=== PATIENT | male | born 1930 | race Caucasian/White ===

== ENCOUNTER 2017-02-08 18:43 | Emergency (ER) | payer MEDICARE, OTHER ==
[2017-02-08 19:44] LABS: BASOPHIL 0.2 % (0-2); EOSINOPHIL 0.2 % (0-7); HGB 13.9 g/dl (13.2-18.0); LYMPHOCYTE 14.6 % (15-48); MCH 29.6 pg (25.0-31.0); MCHC 34.8 g/dL (32.0-36.0); MCV 85.1 fL (78.0-100.0); MPV 10.3 fL (6.0-9.5); PLT 238 K/uL (150-400); RDW 13.5 % (11.5-14.0); WBC 10.4 K/uL (4.0-10.5)
[2017-02-08 19:55] LABS: INR 1.54 (0.9-1.2); PTT 27.9 SECONDS (23.2-31.4)
[2017-02-08 20:11] LABS: ALBUMIN 3.8 g/dL (3.4-4.8); BILIRUBIN - TOTAL 0.7 mg/dL (0.1-1.0); CREATININE 1.2 mg/dL (0.7-1.2); GLOBULIN (CALCULATION) 2.7 g/dL (2.2-4.2); POTASSIUM 4.2 mmol/L (3.5-5.1); TOTAL PROTEIN 6.5 g/dL (6.4-8.3)
== END 2017-02-08 20:56 | disposition home or self-care (01) ==
LOC: FER 18:43
PROVIDERS: Emergency Medicine
DX: B02.31 Zoster conjunctivitis (principal); I11.9 Hypertensive heart disease without heart failure; Z87.891 Personal history of nicotine dependence; Z79.82 Long term (current) use of aspirin; Z79.02 Long term (current) use of antithrombotics/antiplatelets; Z79.899 Other long term (current) drug therapy
CPT/HCPCS: 36415; 70450; 71020; 80053; 85025; 85610; 85730; 86403; 87040; 87070; 87077; 87186; 87205

== ENCOUNTER 2020-09-28 13:20 | Inpatient (IN) | payer MEDICARE, OTHER ==
[2020-09-28 14:24] LABS: BASOPHIL 0.4 % (0-2); EOSINOPHIL 0 % (0-7); HCT 42.8 % (42.0-52.0); HGB 13.3 g/dl (13.2-18.0); LYMPHOCYTE 19.2 % (15-48); MCH 29.2 pg (25.0-31.0); MCHC 31.1 g/dL (32.0-36.0); MCV 94.1 fL (78.0-100.0); MONOCYTE 11.4 % (0-12); MPV 11.1 fL (6.0-9.5); NEUTROPHIL 68.4 % (41-80); NRBC 0; PLT 225 K/uL (150-400); RBC 4.55 M/uL (4.70-6.00); RDW 13.4 % (11.5-14.0)
[2020-09-28 14:34] LABS: ALBUMIN 3.1 g/dL (3.4-5.0); BILIRUBIN - TOTAL 0.7 mg/dL (0.2-1.0); BUN/CREAT RATIO (CALC) 27.2 RATIO; CREATININE 1.25 mg/dL (0.67-1.17); GLOBULIN (CALCULATION) 3.8 g/dL; POTASSIUM 4.3 mmol/L (3.5-5.1); TOTAL PROTEIN 6.9 g/dL (6.4-8.2)
[2020-09-28] MEDS ORDERED: OFLOXACIN5 M1 OP (23:21)
[2020-09-28] MEDS ORDERED: COREG 6.25MG6.25 MG PO (23:22)
[2020-09-28] MEDS ORDERED: FENOFIBRATE160 MG PO (23:22)
[2020-09-28] MEDS ORDERED: NORVASC5 MG PO (23:22)
[2020-09-28] MEDS ORDERED: ZOCOR40 MG PO (23:23)
[2020-09-28] MEDS ORDERED: PLAVIX75 MG PO (23:23)
[2020-09-29 05:56] LABS: BASOPHIL 0.3 % (0-2); EOSINOPHIL 0 % (0-7); HCT 43.3 % (42.0-52.0); LYMPHOCYTE 13.4 % (15-48); MCV 96.7 fL (78.0-100.0); MONOCYTE 3.8 % (0-12); MPV 11.4 fL (6.0-9.5); NEUTROPHIL 81.6 % (41-80); NRBC 0; PLT 198 K/uL (150-400); RBC 4.48 M/uL (4.70-6.00); RDW 13.4 % (11.5-14.0); WBC 3.2 K/uL (4.0-10.5)
[2020-09-29 06:20] LABS: BUN/CREAT RATIO (CALC) 32.7 RATIO; C-REACTIVE PROTEIN 8.2 mg/dL (<=0.90); CREATININE 0.98 mg/dL (0.67-1.17); POTASSIUM 4.8 mmol/L (3.5-5.1)
[2020-09-30 05:44] LABS: BASOPHIL 0.1 % (0-2); EOSINOPHIL 0 % (0-7); HCT 43.5 % (42.0-52.0); HGB 13.3 g/dl (13.2-18.0); LYMPHOCYTE 10.1 % (15-48); MCH 29.1 pg (25.0-31.0); MCHC 30.6 g/dL (32.0-36.0); MCV 95.2 fL (78.0-100.0); MONOCYTE 5.1 % (0-12); MPV 11.4 fL (6.0-9.5); NEUTROPHIL 84.1 % (41-80); NRBC 0; PLT 259 K/uL (150-400); RBC 4.57 M/uL (4.70-6.00); RDW 13.5 % (11.5-14.0)
--- NOTE | 2020-09-30 05:48 | NUR ---
LOVENOX TIMES CHANGED BY PHARMACY, CONSTRUCTION INSPECTOR NOTIFIED OF LOVENOX GIVEN AT 0530 PHARMACY CHANGED TIME OF WHEN LOVENOX DUE
[2020-09-30 05:49] LABS: WBC 6.9 K/uL (4.0-10.5)
[2020-09-30 05:53] LABS: BUN/CREAT RATIO (CALC) 43.7 RATIO; CREATININE 0.87 mg/dL (0.67-1.17)
--- NOTE | 2020-09-30 06:21 | NUR ---
TROPONIN AND SODIUM LEVEL CALLED TO CHARTING CLERK- NO NEW ORDERS
[2020-09-30] MEDS ORDERED: ASPIRIN EC81 MG PO (07:30)
[2020-09-30] MEDS ORDERED: DEXAMETHASONE 2M2 MG PO (07:32)
--- NOTE | 2020-09-30 12:32 | NUR ---
09/30 Mr. Stokes lives at home with his spouse. A son is also in the home. He has a rw and cane. Pt is discharging home today. A referral was made to [facility] for 02. Ms. Stokes was advised to call [facility] for delivery of the concentrator upon arrival home. - A referral was made to [facility] per family choice; affliation explained. Report given to SHAMAR Waldron RN.
--- NOTE | 2020-09-30 13:09 | NUR ---
S/W PATIENTS SPOUSE JAISON D/Joyce INSTRUCTIONS GIVEN AND JAISON VERBALIZED UNDERSTANDING
== END 2020-09-30 15:30 | disposition home health service (06) | DRG 177 ==
LOC: FER 13:20 → FTCU 17:21
PROVIDERS: Emergency Medicine; ADMIT Allergy & Immunology Allergy
PROC: 8E0ZXY6 Isolation (ICD-10-PCS; principal; 2020-09-28)
PROC: XW033E5 Introduction of Remdesivir Anti-infective into Peripheral Vein, Percutaneous Approach, New Technology Group 5 (ICD-10-PCS; 2020-09-28)
PROC: 3E0333Z Introduction of Anti-inflammatory into Peripheral Vein, Percutaneous Approach (ICD-10-PCS; 2020-09-28)
DX: U07.1 COVID-19 (principal); I21.4 Non-ST elevation (NSTEMI) myocardial infarction; J96.01 Acute respiratory failure with hypoxia; N17.9 Acute kidney failure, unspecified; W06.XXXA Fall from bed, initial encounter; Z91.81 History of falling; Y92.003 Bedroom of unspecified non-institutional (private) residence as the place of occurrence of the external cause; I10 Essential (primary) hypertension; I73.9 Peripheral vascular disease, unspecified; E78.5 Hyperlipidemia, unspecified; I65.29 Occlusion and stenosis of unspecified carotid artery; J44.9 Chronic obstructive pulmonary disease, unspecified; F03.90 Unspecified dementia, unspecified severity, without behavioral disturbance, psychotic disturbance, mood disturbance, and anxiety; Z79.899 Other long term (current) drug therapy; Z87.891 Personal history of nicotine dependence
CPT/HCPCS: 36415; 36600; 70450; 71045; 71275; 80048; 80053; 80061; 82803; 83605; 83880; 84484; 85025; 85730; 86140; 87040; 93005; C9399; J1100; J1644; J1650; J1885; J2270; J7030; J7050; J7060; Q9967; U0002